=== PATIENT | male | born 1980 | race Caucasian/White ===

== ENCOUNTER 2017-02-22 17:40 | Emergency (ER) | payer OTHER ==
[2017-02-22 17:45] VITALS: BP 150/90; PULSE 58; RESP 16; TEMP 97.5; O2SAT 98
--- NOTE | 2017-02-22 18:18 | ED PDOC ---
HPI: Back Time Seen by Provider: 02/22/17 17:46 Chief Complaint (Nursing): Back Pain Chief Complaint (Provider): Right lower back pain radiating down the right leg History Per: Patient History/Exam Limitations: no limitations Onset/Duration Of Symptoms: Days Current Symptoms Are (Timing): Still Present Quality Of Discomfort: Sharp (with some movement ), Dull Severity: Moderate Pain Scale Rating Of: 6 Previous Symptoms: Other (Left sided sciatica in the past ) Exacerbating Factor(s): Movement, Sitting Additional Complaint(s): Pt denies injury. Past Medical History Reviewed: Historical Data, Nursing Documentation, Vital Signs Vital Signs: Last Vital Signs Temp 97.5 F L 02/22/17 17:42 Pulse 58 L 02/22/17 17:42 Resp 16 02/22/17 17:42 BP 150/90 02/22/17 17:42 Pulse Ox 98 02/22/17 17:42 - Medical History PMH: No Chronic Diseases - Surgical History Surgical History: No Surg Hx - Family History Family History: States: No Known Family Hx - Home Medications Home Medications: Ambulatory Orders Medication Instructions Recorded Prednisone 50 mg PO DAILY #6 tab 08/09/14 Tizanidine Hydrochloride 4 mg PO Q6 PRN #20 tab 08/09/14 [Tizanidine HCl] oxyCODONE/Acetaminophen [Percocet 1 tab PO Q4H PRN #20 tab 08/09/14 5/325 mg Tab] - Allergies Allergies/Adverse Reactions: Allergies Allergy/AdvReac Type Severity Reaction Status Date / Time No Known Allergies Allergy Verified 08/09/14 20:21 Review of Systems ROS Statement: Except As Marked, All Systems Reviewed And Found Negative Constitutional: Negative for: Fever, Chills Cardiovascular: Negative for: Chest Pain Respiratory: Negative for: Cough, Shortness of Breath Musculoskeletal: Positive for: Back Pain Skin: Negative for: Rash Physical Exam - Reviewed Nursing Documentation Reviewed: Yes Vital Signs Reviewed: Yes - Physical Exam Appears: Positive for: Well, Non-toxic, No Acute Distress Head Exam: Positive for: ATRAUMATIC, NORMAL INSPECTION, NORMOCEPHALIC Skin: Positive for: Normal Color, Warm, DRY Eye Exam: Positive for: Normal appearance ENT: Positive for: Normal ENT Inspection Neck: Positive for: Normal, Painless ROM Cardiovascular/Chest: Positive for: Regular Rate, Rhythm Respiratory: Positive for: Normal Breath Sounds. Negative for: Accessory Muscle Use, Respiratory Distress Back: Positive for: Normal Inspection. Negative for: Vertebral Tenderness, Decreased ROM Extremity: Positive for: Normal ROM Neurologic/Psych: Positive for: Alert, Oriented - ECG O2 Sat by Pulse Oximetry: 98 Medical Decision Making Medical Decision Making: Discussed stretching for sciatica Disposition - Clinical Impression Clinical Impression: Sciatica Counseled Patient/Family Regarding: Diagnosis, Need For Followup, Rx Given - Disposition Disposition: Routine/Home Disposition Time: 18:17 Condition: GOOD Instructions: Sciatica (ED)
--- NOTE | 2017-02-22 18:18 | ED PDOC ---
HPI: Back Time Seen by Provider: 02/22/17 17:46 Chief Complaint (Nursing): Back Pain Chief Complaint (Provider): Back Pain History Per: Patient History/Exam Limitations: no limitations Current Symptoms Are (Timing): Still Present Quality Of Discomfort: "Pain" Pain Scale Rating Of: 10 Additional Complaint(s): Dhruv Pratt, a 36 year old male, with a past medical history of sciatica, presents to the ED complaining of back pain that radiates to the right leg. Patient states that he has not taken any medications for pain. Past Medical History Reviewed: Historical Data, Nursing Documentation, Vital Signs Vital Signs: Last Vital Signs Temp 97.5 F L 02/22/17 17:42 Pulse 58 L 02/22/17 17:42 Resp 16 02/22/17 17:42 BP 150/90 02/22/17 17:42 Pulse Ox 98 02/22/17 17:42 - Medical History PMH: No Chronic Diseases - Surgical History Surgical History: No Surg Hx - Family History Family History: States: Unknown Family Hx - Social History Current smoker - smoking cessation education provided: No Ex-Smoker (has not smoked in the last 12 months): No Alcohol: None Drugs: Denies - Home Medications Home Medications: Ambulatory Orders Medication Instructions Recorded Prednisone 50 mg PO DAILY #6 tab 08/09/14 Tizanidine Hydrochloride 4 mg PO Q6 PRN #20 tab 08/09/14 [Tizanidine HCl] oxyCODONE/Acetaminophen [Percocet 1 tab PO Q4H PRN #20 tab 08/09/14 5/325 mg Tab] - Allergies Allergies/Adverse Reactions: Allergies Allergy/AdvReac Type Severity Reaction Status Date / Time No Known Allergies Allergy Verified 08/09/14 20:21 Review of Systems ROS Statement: Except As Marked, All Systems Reviewed And Found Negative Musculoskeletal: Positive for: Back Pain (back pain that raidates to right leg) - ECG O2 Sat by Pulse Oximetry: 98 (RA) Pulse Ox Interpretation: Normal Medical Decision Making Medical Decision Makin Initial Impression 36 y/o male presenting with back pain Initial Plan: * Flexeril 10mg PO * Motrin Tab 600mg PO * Reevaluation Scribe Attestation Documented by Jo-Ann Nathan acting as a scribe for Natali Soto PA-C. Scribe Attestation All medical record entries made by the Scribe were at my direction and personally dictated by me. I have reviewed the chart and agree that the record accurately reflects my personal performance of the history, physical exam, medical decision making, and the department course for this patient. I have also personally directed, reviewed, and agree with the discharge instructions and disposition. Disposition - Patient ED Disposition Is Patient to be Admitted: No - Disposition Disposition: Routine/Home Disposition Time: 18:15 - POA Present On Arrival: None
== END 2017-02-22 18:38 | disposition home or self-care (01) ==
LOC: H.ER 17:40
DX: M54.40 Lumbago with sciatica, unspecified side (principal)